=== PATIENT | female | born 1995 | race Caucasian/White ===

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

== ENCOUNTER 2017-11-23 22:00 | Emergency (ER) | payer BC ==
[2017-11-23 22:56] VITALS: BP 119/72
--- NOTE | 2017-11-23 22:56 | ED ---
Courtney Mayorga Emily, scribed for Boston Olsen MD on 11/23/17 at 2234 . Throat Pain/Nasal Congestion - HPI Summary HPI Summary: This patient is a 22 year old F presenting to [facility] accompanied by family with a chief complaint of nose pain status post colliding heads with a friend at 2100 tonight. The patient rates the pain 0/10 in severity. Symptoms aggravated by nothing. Symptoms alleviated by nothing. Patient reports nasal discharge. Patient denies bleeding from nose. - History of Current Complaint Chief Complaint: EDFacialInjury Time Seen by Provider: 11/23/17 22:23 Hx Obtained From: Patient Onset/Duration: Sudden Onset, Lasting Hours, Still Present Severity: Mild Associated Signs And Symptoms: Positive: Nasal Discharge - Allergies/Home Medications Allergies/Adverse Reactions: Allergies Allergy/AdvReac Type Severity Reaction Status Date / Time No Known Allergies Allergy Verified 07/03/16 07:25 Home Medications: Home Medications NK [No Home Medications Reported] 11/23/17 [History Confirmed 11/23/17] PMH/Surg Hx/FS Hx/Imm Hx Previously Healthy: Yes Respiratory History: Reports: Hx Asthma - EXCERSISE INDUCED Opthamlomology History: Denies: Hx Legally Blind EENT History: Denies: Hx Deafness Infectious Disease History: No Infectious Disease History: Denies: Traveled Outside the [place] in Last 30 Days - Family History Known Family History: Positive: Hypertension, Diabetes - Social History Occupation: Student Lives: With Family Alcohol Use: None Substance Use Type: Reports: None Hx Tobacco Use: No Smoking Status (MU): Never Smoked Tobacco Have You Smoked in the Last Year: No Review of Systems Positive: Nasal Discharge, Other - Negative bleeding from nose Positive: Other - Positive nose pain All Other Systems Reviewed And Are Negative: Yes Physical Exam - Summary Physical Exam Summary: VITAL SIGNS: Reviewed. GENERAL: ~Patient is a well-developed and nourished female who is lying comfortable in the stretcher. Patient is not in any acute respiratory distress. HEAD AND FACE: No signs of trauma. No ecchymosis, hematomas or skull depressions. Mild tenderness over the L side of the nose. No swelling. No bleeding EYES: PERRLA, EOMI x 2, No injected conjunctiva, no nystagmus. EARS: Hearing grossly intact. Ear canals and tympanic membranes are within normal limits. MOUTH: Oropharynx within normal limits. NECK: Supple, trachea is midline, no adenopathy, no JVD, no carotid bruit, no c- spine tenderness, neck with full ROM. CHEST: Symmetric, no tenderness at palpation LUNGS: Clear to auscultation bilaterally. No wheezing or crackles. CVS: Regular rate and rhythm, S1 and S2 present, no murmurs or gallops appreciated. ABDOMEN: Soft, non-tender. No signs of distention. No rebound no guarding, and no masses palpated. Bowel sounds are normal. EXTREMITIES: FROM in all major joints, no edema, no cyanosis or clubbing. NEURO: Alert and oriented x 3. No acute neurological deficits. Speech is normal and follows commands. SKIN: Dry and warm Triage Information Reviewed: Yes Vital Signs On Initial Exam: Initial Vitals Temp Pulse Resp BP Pulse Ox 98.7 F 88 16 124/78 100 11/23/17 22:07 11/23/17 22:07 11/23/17 22:07 11/23/17 22:07 11/23/17 22:07 Vital Signs Reviewed: Yes Diagnostics - Vital Signs Vital Signs Temp Pulse Resp BP Pulse Ox 11/23/17 22:07 98.7 F 88 16 124/78 100 - Laboratory Lab Statement: Any lab studies that have been ordered have been reviewed, and results considered in the medical decision making process. - Radiology Nasal Bones XR Radiology Interpretation Completed By: ED Physician - Nasal bones XR reveals, per ED physician, no fracture. EENT Course/Dx - Course Course Of Treatment: This patient is a 22 year old F presenting to [facility] accompanied by family with a chief complaint of nose pain status post colliding heads with a friend at 2100 tonight. Nasal bones XR reveals, per ED physician, no fracture. Pt will be discharged home, she is agreeable with this plan. - Diagnoses Provider Diagnoses: Contusion, nose Discharge - Sign-Out/Discharge Documenting (check all that apply): Discharge/Admit/Transfer - Discharge home - Discharge Plan Condition: Stable Disposition: HOME Patient Education Materials: Nasal Contusion (ED) Referrals: Serge Conn MD [Primary Care Provider] - If Needed Additional Instructions: USE ICE AND PAIN MEDICATIONS NECESSARY RETURN TO THE EMERGENCY DEPARTMENT FOR NEW OR WORSENING SYMPTOMS The documentation as recorded by the Courtney esposito Emily accurately reflects the service I personally performed and the decisions made by me, Boston Olsen MD.
--- NOTE | 2017-11-24 07:31 | RAD ---
INDICATION: Nasal bone trauma. TECHNIQUE: 3 views of the nasal bones were obtained including lateral and Lutz views. FINDINGS: There is soft tissue swelling present over the nose. No fracture is seen. There is moderate S-shaped deviation of the nasal septum which is convex toward the left along its superior portion and toward the right along its inferior portion. IMPRESSION: NO EVIDENCE OF FRACTURE.
== END 2017-11-23 22:55 | disposition home or self-care (01) ==
LOC: ED 22:00
DX: S00.33XA Contusion of nose, initial encounter (principal); W50.0XXA Accidental hit or strike by another person, initial encounter; Y92.9 Unspecified place or not applicable
CPT/HCPCS: 70160; 99282

== ENCOUNTER 2018-01-17 19:48 | Emergency (ER) | payer BC ==
[2018-01-17 19:57] VITALS: BP 108/64
[2018-01-17] MEDS ORDERED: BSS OPTH.SOL* BTL OPHTHALMIC ONE (20:15)
[2018-01-17] MEDS ORDERED: Fluorescein Sod TOPICAL 0.6* 0.6 MG TEST OPHTHALMIC ONE (20:15)
[2018-01-17] MEDS ORDERED: Tetracaine 0.5% OPTH.SOL 4 ML* 1 DROP BTL ONE (20:16)
--- NOTE | 2018-01-17 20:20 | UC ---
Eye Complaint HPI - HPI Summary HPI Summary: feels like she got a fb in her left eye while washing he deck - History of Current Complaint Chief Complaint: UCEye Stated Complaint: FB IN EYE Time Seen by Provider: 01/17/18 20:13 Hx Obtained From: Patient Hx Last Menstrual Period: now ?: No Onset/Duration: Sudden Onset Timing: Constant Pain Intensity: 3 Pain Scale Used: 0-10 Numeric Location of Injury: Conjunctiva Character: Foreign Body Sensation Aggravating Factor(s): Nothing Alleviating Factor(s): Nothing Associated Signs And Symptoms: Positive: Drainage (Clear) - left - Allergies/Home Medications Allergies/Adverse Reactions: Allergies Allergy/AdvReac Type Severity Reaction Status Date / Time No Known Allergies Allergy Verified 01/17/18 19:58 PMH/Surg Hx/FS Hx/Imm Hx Previously Healthy: Yes - Surgical History Surgical History: None - Family History Known Family History: Positive: Hypertension, Diabetes - Social History Occupation: Student Lives: With Family Alcohol Use: Occasionally Alcohol Amount: 1 glass of wine with Thanksgiving dinner Substance Use Type: None Smoking Status (MU): Never Smoked Tobacco Have You Smoked in the Last Year: No Household Exposure Type: Cigarettes, Cigars - Immunization History Most Recent Influenza Vaccination: unknown Review of Systems Constitutional: Negative Skin: Negative Eyes: Eye Redness - left ENT: Negative Respiratory: Negative Cardiovascular: Negative Gastrointestinal: Negative Genitourinary: Negative Motor: Negative Neurovascular: Negative Musculoskeletal: Negative Neurological: Negative Psychological: Negative Is Patient Immunocompromised?: No All Other Systems Reviewed And Are Negative: Yes Physical Exam Triage Information Reviewed: Yes Appearance: Well-Appearing, No Pain Distress, Well-Nourished Vital Signs: Initial Vital Signs Temp 98.5 F 01/17/18 19:54 Pulse 83 01/17/18 19:54 Resp 18 01/17/18 19:54 BP 108/64 01/17/18 19:54 Pulse Ox 100 01/17/18 19:54 Vital Signs Reviewed: Yes Eye Exam: Normal - right, Other - left Eyes: Positive: Conjunctiva Clear - right, Conjunctiva Inflamed - left, Discharge - left clear ENT Exam: Normal ENT: Positive: Normal ENT inspection, Hearing grossly normal, Pharynx normal, TMs normal. Negative: Nasal congestion, Nasal drainage, Trismus, Muffled voice , Hoarse voice, Dental tenderness Dental Exam: Normal Neck exam: Normal Neck: Positive: Supple, Nontender Respiratory Exam: Normal Respiratory: Positive: Chest non-tender, No respiratory distress, No accessory muscle use Cardiovascular Exam: Normal Cardiovascular: Positive: RRR, Pulses Normal, Brisk Capillary Refill Musculoskeletal Exam: Normal Musculoskeletal: Positive: Strength Intact, ROM Intact Neurological Exam: Normal Neurological: Positive: Alert, Muscle Tone Normal Psychological Exam: Normal Skin Exam: Normal Re-Evaluation - Re-Evaluation First Eval Change: Unchanged - lid inverted, eye stained no evidence of fb or scratch Eye Complaint Course/Dx - Course Course Of Treatment: polytrim opthalimic drops, ibuprofen/tylenol follow with Dr. John gross symptoms fail to resolve in 12-24 hours - Differential Dx/Diagnosis Provider Diagnoses: OS Irratation, conjuctivitis Discharge - Sign-Out/Discharge Documenting (check all that apply): Patient Departure - Discharge Plan Condition: Stable Disposition: HOME Patient Education Materials: Ibuprofen (By mouth), Eye Foreign Body (ED) Referrals: Serge Conn MD [Primary Care Provider] - Migel Lopez MD [Medical Doctor] - If Needed - Billing Disposition and Condition Condition: STABLE Disposition: Home
[2018-01-17] MEDS ORDERED: Polymyx/Trimethoprim OPTH* 10 ML BTL LEFT EYE ONE (20:36)
== END 2018-01-17 20:55 | disposition home or self-care (01) ==
LOC: UCEAST 19:48
DX: H57.8 Other specified disorders of eye and adnexa (principal); H10.32 Unspecified acute conjunctivitis, left eye; Z82.49 Family history of ischemic heart disease and other diseases of the circulatory system; Z83.3 Family history of diabetes mellitus
CPT/HCPCS: 99212; A9270-GY; G0463

== ENCOUNTER 2019-01-15 21:58 | Emergency (ER) | payer BC ==
[2019-01-15 22:57] LABS: ABS Basophils 0.1 10^3/ul (0-0.2); ABS Lymphocytes 1.7 10^3/ul (1.0-4.8); ABS Monocytes 0.4 10^3/ul (0-0.8); ABS Neutrophils 3.2 10^3/ul (1.5-7.7); Eosinophil % 0.2 %; Hematocrit 36 % (35-47); Hemoglobin 11.8 g/dL (12.0-16.0); Lymphocyte % 31.9 %; Mean Corpuscular HGB Conc 33 g/dL (31-36); Mean Corpuscular Hemoglobin 26 pg (27-31); Mean Corpuscular Volume 80 fL (80-97); Mean Platelet Volume 7.7 fL (7.4-10.4); Platelet Count 275 10^3/uL (150-450); Red Cell Distribution Width 17 % (10-15); White Blood Count 5.4 10^3/uL (3.5-10.8)
[2019-01-15] MEDS ORDERED: Lactated Ringers 1000 ML Bag* 1,000 ML IV SCH (23:00)
[2019-01-15 23:17] LABS: Albumin 4.8 g/dL (3.2-5.2); Albumin/Globulin Ratio 1.5 (1-3); BUN/Creatinine Ratio 14.7 (8-20); Calcium 9.8 mg/dL (8.6-10.3); EGFR African American 116.9 (>60); EGFR Non-African American 96.6 (>60); Globulin 3.1 g/dL (2-4); Potassium 3.2 mmol/L (3.5-5.0); Total Bilirubin 0.6 mg/dL (0.2-1.0); Total Protein 7.9 g/dL (6.4-8.9)
[2019-01-15 23:56] LABS: Urine Appearance Cloudy; Urine Bilirubin Negative (Negative); Urine Blood Negative (Negative); Urine Color Yellow; Urine Glucose Negative (Negative); Urine Ketones Trace (Negative); Urine Nitrite Negative (Negative); Urine Protein Negative (Negative); Urine Specific Gravity 1.006 (1.010-1.030); Urine Urobilinogen Negative (Negative)
[2019-01-16] MEDS ORDERED: Potassium Chlor TAB* 20 MEQ TAB.ER PO ONE (00:30)
--- NOTE | 2019-01-16 02:09 | ED ---
GI/ HPI - HPI Summary HPI Summary: Patient is a 24 y/o F who is A0 presenting to ED with complaints of abdominal pain, dizziness, and some SOB. She reports that she is unsure for how long she has been . was confirmed with home urine test. LNMP was November 13. She notes that she has not gotten an US yet. She notes abdominal pain radiates into her back. She denies vaginal bleeding and urinary Sx. On triage, pain is rated 5/10, nothing is noted to aggravate/alleviate Sx. Home medications and allergies are reviewed. - History of Current Complaint Chief Complaint: EDAbdPain Time Seen by Provider: 01/15/19 22:19 Stated Complaint: " WITH ABDOMINAL PAIN PER PT" Hx Obtained From: Patient Hx Last Menstrual Period: now Onset/Duration: Still Present Timing: Constant Severity: Moderate Current Severity: Moderate Pain Intensity: 5 Location of Pain: Diffuse Pain Radiates to: Back Associated Signs and Symptoms: Positive: Back Pain, Dizziness, Abdominal Pain, Other: - SOB. Negative: UTI Symptoms Additional Signs & Symptoms: Negative: Vaginal Bleeding Aggravating Factor(s): Nothing Alleviating Factor(s): Nothing - Allergy/Home Medications Allergies/Adverse Reactions: Allergies Allergy/AdvReac Type Severity Reaction Status Date / Time No Known Allergies Allergy Verified 01/15/19 22:05 Home Medications: Home Medications [id number]/Iron/Folic Acid/Dha [Prena1 Madhuri Softgel] 1 tab PO DAILY 01/15/19 [ History Confirmed 01/15/19] PMH/Surg Hx/FS Hx/Imm Hx Respiratory History: Reports: Hx Asthma - EXCERSISE INDUCED Sensory History: Denies: Hx Legally Blind, Hx Deafness Opthamlomology History: Denies: Hx Legally Blind Infectious Disease History: No Infectious Disease History: Denies: Traveled Outside the [place] in Last 30 Days - Family History Known Family History: Positive: Hypertension, Diabetes - Social History Alcohol Use: Occasionally Alcohol Amount: 1 glass of wine with Thanksgiving dinner Substance Use Type: Reports: None Hx Tobacco Use: No Smoking Status (MU): Never Smoked Tobacco Have You Smoked in the Last Year: No Review of Systems Positive: Shortness Of Breath Positive: Abdominal Pain Genitourinary: Other - negative - urinary Sx and vaginal bleeding Neurological: Other - positive - dizziness All Other Systems Reviewed And Are Negative: Yes Physical Exam - Summary Physical Exam Summary: VITAL SIGNS: Reviewed. GENERAL: Patient is a well-developed and nourished female who is lying comfortable in the stretcher. Patient is not in any acute respiratory distress. HEAD AND FACE: No signs of trauma. No ecchymosis, hematomas or skull depressions. No sinus tenderness. EYES: PERRLA, EOMI x 2, No injected conjunctiva, no nystagmus. EARS: Hearing grossly intact. Ear canals and tympanic membranes are within normal limits. MOUTH: Oropharynx within normal limits. NECK: Supple, trachea is midline, no adenopathy, no JVD, no carotid bruit, no c- spine tenderness, neck with full ROM CHEST: Symmetric, no tenderness at palpation LUNGS: Clear to auscultation bilaterally. No wheezing or crackles. CVS: Regular rate and rhythm, S1 and S2 present, no murmurs or gallops appreciated. ABDOMEN: Soft, non-tender. No signs of distention. No rebound no guarding, and no masses palpated. Bowel sounds are normal. EXTREMITIES: FROM in all major joints, no edema, no cyanosis or clubbing. NEURO: Alert and oriented x 3. No acute neurological deficits. Speech is normal and follows commands. SKIN: Dry and warm Triage Information Reviewed: Yes Vital Signs On Initial Exam: Initial Vitals Temp Pulse Resp BP Pulse Ox 99.6 F 92 16 134/88 100 01/15/19 22:00 01/15/19 22:00 01/15/19 22:00 01/15/19 22:00 01/15/19 22:00 Vital Signs Reviewed: Yes Diagnostics - Vital Signs Vital Signs Temp Pulse Resp BP Pulse Ox 01/16/19 01:00 110 100 01/16/19 00:51 104 129/81 100 01/16/19 00:49 109 125/76 100 01/15/19 23:21 101 133/74 100 01/15/19 23:01 107 95 01/15/19 22:51 109 136/96 100 01/15/19 22:21 106 136/83 100 01/15/19 22:20 91 100 01/15/19 22:00 99.6 F 92 16 134/88 100 - Laboratory Lab Results: Lab Results 07/20/19 07/20/19 07/20/19 Range/Units 22:43 22:44 23:48 WBC 5.4 (3.5-10.8) 10^3/uL RBC 4.50 (3.70-4.87) 10^6 /uL Hgb 11.8 L (12.0-16.0) g/dL Hct 36 (35-47) % MCV 80 (80-97) fL MCH 26 L (27-31) pg MCHC 33 (31-36) g/dL RDW 17 H (10-15) % Plt Count 275 (150-450) 10^3/uL MPV 7.7 (7.4-10.4) fL Neut % (Auto) 59.4 % Lymph % (Auto) 31.9 % [place] % (Auto) 7.5 % Eos % (Auto) 0.2 % Baso % (Auto) 1.0 % Absolute Neuts (auto) 3.2 (1.5-7.7) 10^3/ul Absolute Lymphs (auto) 1.7 (1.0-4.8) 10^3/ul Absolute Monos (auto) 0.4 (0-0.8) 10^3/ul Absolute Eos (auto) 0.0 (0-0.6) 10^3/ul Absolute Basos (auto) 0.1 (0-0.2) 10^3/ul Absolute Nucleated RBC 0.0 10^3/ul Nucleated RBC % 0.0 Sodium 135 (135-145) mmol/L Potassium 3.2 L (3.5-5.0) mmol/L Chloride 104 (101-111) mmol/L Carbon Dioxide 22 (22-32) mmol/L Anion Gap 9 (2-11) mmol/L BUN 11 (6-24) mg/dL Creatinine 0.75 (0.51-0.95) mg/dL Est GFR ( Amer) 116.9 (>60) Est GFR (Non-Af Amer) 96.6 (>60) BUN/Creatinine Ratio 14.7 (8-20) Glucose 114 H (70-100) mg/dL Calcium 9.8 (8.6-10.3) mg/dL Magnesium 2.0 (1.9-2.7) mg/dL Total Bilirubin 0.60 (0.2-1.0) mg/dL AST 25 (13-39) U/L ALT 26 (7-52) U/L Alkaline Phosphatase 48 (34-104) U/L Total Protein 7.9 (6.4-8.9) g/dL Albumin 4.8 (3.2-5.2) g/dL Globulin 3.1 (2-4) g/dL Albumin/Globulin Ratio 1.5 (1-3) Beta HCG, Quant 60995.00 mIU/mL Urine Color Yellow Urine Appearance Cloudy Urine pH 6.0 (5-9) Ur Specific [place] 1.006 L (1.010-1.030) Urine Protein Negative (Negative) Urine Ketones Trace A (Negative) Urine Blood Negative (Negative) Urine Nitrate Negative (Negative) Urine Bilirubin Negative (Negative) Urine Urobilinogen Negative (Negative) Ur Leukocyte Esterase Negative (Negative) Urine Glucose Negative (Negative) Result Diagrams: 01/15/19 22:44 01/15/19 22:43 Lab Statement: Any lab studies that have been ordered have been reviewed, and results considered in the medical decision making process. - Ultrasound TRANSVAGINAL US Ultrasound Interpretation Completed By: Radiologist Summary of Ultrasound Findings: IMPRESSION: 1. There is an intrauterine gestational sac with yolk sac but no visible . pole with mean gestational sac diameter 9 mm or 5 weeks 4 days gestational age. 2. There is likely hemorrhagic or corpus luteum cyst of the left ovary. measuring a maximum of 2.6 cm. 3. The vascular ultrasound technologist worksheet was not provided at the time of. interpretation and is a necessary component of accurate interpretation and. therefore interpretation is tentative pending review of the worksheet. THIS REPORT WAS REVIEWED BY DR. LOCKETT. Re-Evaluation - Re-Evaluation First Eval Re-Evaluation Time: 01:58 Comment: Results of labs and tests were discussed with the patient. Patient will be discharged to home and follow up with PCP and OBGYN within three days. She is advised to get an US in a week. Strict return precautions given. Patient agreeable with this plan. GIGU Course/Dx - Course Course Of Treatment: Patient is a 24 y/o F who is A0 presenting to ED with complaints of abdominal pain, dizziness, and some SOB. She reports that she is unsure for how long she has been . was confirmed with home urine test. LNMP was November 13. She notes that she has not gotten an US yet. She notes abdominal pain radiates into her back. She denies vaginal bleeding and urinary Sx. Physical exam is unremarkable. TRANSVAGINAL US IMPRESSION: 1. There is an intrauterine gestational sac with yolk sac but no visible . pole with mean gestational sac diameter 9 mm or 5 weeks 4 days gestational age. 2. There is likely hemorrhagic or corpus luteum cyst of the left ovary. measuring a maximum of 2.6 cm. 3. The vascular ultrasound technologist worksheet was not provided at the time of. interpretation and is a necessary component of accurate interpretation and. therefore interpretation is tentative pending review of the worksheet. Results of labs and tests were discussed with the patient. Patient will be discharged to home and follow up with PCP and OBGYN within three days. She is advised to get an US in a week. Strict return precautions given. Patient agreeable with this plan. - Diagnoses Provider Diagnoses: Abdominal pain Discharge - Sign-Out/Discharge Documenting (check all that apply): Patient Departure - discharge Patient Received Moderate/Deep Sedation with Procedure: No - Discharge Plan Condition: Stable Disposition: HOME Patient Education Materials: Abdominal Pain (ED) Referrals: Serge Conn MD [Primary Care Provider] - 3 Days Rebecca Kent MD [Medical Doctor] - 3 Days Additional Instructions: RETURN TO ED FOR ANY NEW OR WORSENING SYMPTOMS. FOLLOW UP WITH YOUR PRIMARY CARE PHYSICIAN AND OBGYN WITHIN THREE DAYS. GET A REPEAT ULTRASOUND IN A WEEK. - Attestation Statements Document Initiated by Scribe: Yes Documenting Scribe: MISAEL MORENO Provider For Whom Chito is Documenting (Include Credential): FATUMA LOCKETT MD Scribe Attestation: MISAEL Mayorga, scribed for FATUMA LOCKETT MD on 01/16/19 at 0251. Status of Scribe Document: Ready
[2019-01-16 02:10] VITALS: BP 95/57
== END 2019-01-16 02:17 | disposition home or self-care (01) ==
LOC: ED 21:58
DX: O34.81 Maternal care for other abnormalities of pelvic organs, first trimester (principal); N83.12 Corpus luteum cyst of left ovary; R10.84 Generalized abdominal pain; R42 Dizziness and giddiness; R06.02 Shortness of breath; Z3A.01 Less than 8 weeks gestation of pregnancy
CPT/HCPCS: 36415; 76817; 80053; 81003; 83735; 84702; 85025; 96360; 96361; 99284; A9270-GY

== ENCOUNTER 2019-04-03 07:29 | Emergency (ER) | payer BC ==
[2019-04-03 07:37] VITALS: BP 111/77
--- NOTE | 2019-04-03 08:19 | UC ---
Dental HPI - HPI Summary HPI Summary: 24-year-old female who is 17 weeks presents to urgent care with complaints of left upper dental pain. States yesterday she broke one of her teeth while eating and has been having sharp shooting pain since that time. Has been using topical Orajel with no relief in the pain. Does not have a dentist appointment at present. Denies fever, chills, facial swelling, trismus , or drainage. - History of Current Complaint Chief Complaint: UCDentalProblem Stated Complaint: DENTAL COMPLAINT Time Seen by Provider: 04/03/19 08:09 Hx Obtained From: Patient Hx Last Menstrual Period: now ?: Yes - 17 weeks Pain Intensity: 8 Dental: 1 - Fractured tooth without gingival erythema, induration, fluctuance, or drainage. - Allergies/Home Medications Allergies/Adverse Reactions: Allergies Allergy/AdvReac Type Severity Reaction Status Date / Time No Known Allergies Allergy Verified 04/03/19 07:37 PMH/Surg Hx/FS Hx/Imm Hx Previously Healthy: Yes - Denies significant PMH - Surgical History Surgical History: None - Family History Known Family History: Positive: Hypertension, Diabetes - Social History Occupation: Student Lives: Dormitory/Roommates Alcohol Use: None Alcohol Amount: 1 glass of wine with Thanksgiving dinner Substance Use Type: None Smoking Status (MU): Never Smoked Tobacco Have You Smoked in the Last Year: No Household Exposure Type: Cigarettes, Cigars - Immunization History Most Recent Influenza Vaccination: unknown Review of Systems All Other Systems Reviewed And Are Negative: Yes Constitutional: Negative: Fever, Chills ENT: Positive: Dental Pain. Negative: Sore Throat, Ear Ache, Nasal Discharge, Sinus Congestion, Sinus Pain/Tenderness Respiratory: Positive: Negative Cardiovascular: Positive: Negative Gastrointestinal: Positive: Negative Genitourinary: Positive: Negative Musculoskeletal: Positive: Negative Neurological: Positive: Negative Is Patient Immunocompromised?: No Physical Exam - Summary Physical Exam Summary: GENERAL APPEARANCE: Well developed, well nourished, alert and cooperative, and appears to be in no acute distress. HEAD: Atraumatic. Normocephalic. No facial swelling noted. MOUTH/THROAT: Pharynx normal. No tonsilar inflammation, swelling, exudate, or lesions. Uvula midline. Fractured left upper 1st bicuspid without gingival erythema, induration, fluctuance, or drainage noted. NECK: Neck supple, non-tender without lymphadenopathy. CARDIAC: Normal S1 and S2. No S3, S4 or murmurs. Rhythm is regular. There is no peripheral edema, cyanosis or pallor. Extremities are warm and well perfused. Capillary refill is less than 2 seconds. Peripheral pulses intact. LUNGS: Clear to auscultation without rales, rhonchi, wheezing or diminished breath sounds. ABDOMEN: Positive bowel sounds. Soft, nondistended, nontender. No guarding or rebound. No masses or hepatosplenomegally. MUSKULOSKELETAL: ROM intact to all extremities. No joint erythema or tenderness. Normal muscular development. Normal gait. SKIN: Skin normal color, texture and turgor with no lesions or eruptions. Triage Information Reviewed: Yes Vital Signs: Initial Vital Signs Temp 99.0 F 04/03/19 07:34 Pulse 96 04/03/19 07:34 Resp 18 04/03/19 07:34 BP 111/77 04/03/19 07:34 Pulse Ox 100 04/03/19 07:34 Vital Signs Reviewed: Yes Dental Complaint Course/Dx - Course Course Of Treatment: 24-year-old female who is 17 weeks presents to urgent care with complaints of left upper dental pain. States yesterday she broke one of her teeth while eating and has been having sharp shooting pain since that time. Has been using topical Orajel with no relief in the pain. Does not have a dentist appointment at present. Denies fever, chills, facial swelling, trismus , or drainage. Afebrile. Vital signs stable. Patient had a fractured left upper first bicuspid without facial swelling, gingival erythema, induration, fluctuance, or drainage. Remainder of exam was unremarkable. Will place her on amoxicillin 875 mg twice a day 10 days to treat for any underlying infection recommend ufun-dec-caxalnh acetaminophen as well as topical analgesic as needed for pain. She was encouraged to make a dentist appointment with the next available. Anticipatory guidance and warning symptoms were reviewed with the patient. Verbalizes understanding of this plan of care. - Differential Dx/Diagnosis Differential Diagnosis/Dx: Dental Abscess, Dental Caries, Fractured Tooth, Odontogenic Pain, Peridontic Disease Provider Diagnosis: Pain, dental Discharge ED - Sign-Out/Discharge Documenting (check all that apply): Patient Departure All imaging exams completed and their final reports reviewed: No Studies - Discharge Plan Condition: Stable Disposition: HOME Prescriptions: Amoxicillin PO (*) [Amoxicillin 875 MG (*)] 875 mg PO BID #20 tab Patient Education Materials: Toothache (ED) Referrals: Serge Conn MD [Primary Care Provider] - Additional Instructions: Start amoxicillin 875 mg twice a day for 10 days. Take with food to avoid upset stomach. Be sure to complete the entire course even if feeling better. Take acetaminophen (Tylenol) according to directions as needed for pain. You may also use a topical pain medication such as Orajel to provide some temporary relief. Be sure to rinse your mouth out with a warm salt water solution after every time you eat to remove any debris. Make an appointment with your dentist at next available appointment. Seek immediate medical attention in the emergency room if you develop fever greater than 100.5 F, you are unable to open of close your mouth, are unable to swallow, have difficulty breathing, or any worsening of symptoms. - Billing Disposition and Condition Condition: STABLE Disposition: Home
== END 2019-04-03 08:31 | disposition home or self-care (01) ==
LOC: UCEAST 07:29
DX: O99.612 Diseases of the digestive system complicating pregnancy, second trimester (principal); S02.5XXA Fracture of tooth (traumatic), initial encounter for closed fracture; K08.89 Other specified disorders of teeth and supporting structures; Z3A.17 17 weeks gestation of pregnancy; X58.XXXA Exposure to other specified factors, initial encounter; Y92.9 Unspecified place or not applicable
CPT/HCPCS: 99212; G0463

== ENCOUNTER 2019-09-09 17:48 | Inpatient (IN) | payer BC ==
[2019-09-09] MEDS ORDERED: Dinoprostone* 10 MG VAG.SUPP VAGINAL ONE (19:28)
--- NOTE | 2019-09-09 19:36 | PN ---
L&D Outpatient: Visit - Reproductive Information Estimated Due Date: 09/13/19 Gestational Age: 39 Weeks and 3 Days : 1 Para: 0 - Reason for Visit Visit Reason: 24 y/o at 39 + weeks EGA, with gestational diabetes diet controlled, admitted for cervical ripening prior to induction of labor - Antepartal Records Antepartal Record: Reviewed, Complicated by: - Gestational diabetes and FE++ deficiency anemia. - Patient History Patient History Significant: No Review of Systems Constitutional: Comfortable CV Complaint: No Respiratory: Shortness of Breath: No Gastrointestinal: No Nausea/Vomiting, Normal Bowel Movement Genitourinary: No Dysuria, No Bleeding, No Leaking Fluid Musculoskeletal: No Complaint, No Epigastric Pain Neurological: No Headache, No Visual Changes Movement: Normal L&D Outpatient: Exam Vitals - Most Recent: Temp 99.2 BP 124/74 P 96 RR 20 POx 100% RA - Cervical Exam Cervical Exam: 1cm/80%/posterior firm/high - Abdominal Exam Abdomen Exam: Non-Tender, Fundal Height Consistent with Dates - Membranes Membrane Status: Intact - Ultrasound/Biophysical Profile Ultrasound Status: Not Done Biophysical Profile: Normal Reactive NST EFM Findings - External Monitor Findings Baseline Heart Rate: 120 External Monitor Findings: Accelerations Present, No Pattern of Variable or Late Decelerations Contractions: None L&D Outpatient: Asses/Plan Assessment: Poor dumont score, at 39 weeks, GDMA1. Plan: Continue Observation - Cervical ripening with Cervidil tonight.
[2019-09-09] MEDS ORDERED: Morphine 10 MG/ML VIAL (1 ml) IM ONE (23:00)
[2019-09-09] MEDS ORDERED: Promethazine INJ(RESTRICTED)* 25 MG/ML 1 ML VIAL IM ONE (23:00)
[2019-09-10] MEDS ORDERED: Lactated Ringers 1000 ML Bag* 1,000 ML IV ONE ×2 (10:05→17:03)
[2019-09-10] MEDS ORDERED: Buffered Lidocaine 1% SYRIN* 1 ML/SYRINGE INTRADERM ONE (10:05)
--- NOTE | 2019-09-10 10:34 | HP ---
General Information - Reason for Visit at 39 weeks with gestational diabetes, admitted for induction of labor. - General Information Maternal Age: 24 Grav: 1 Para: 0 SAB: 0 IEA: 0 Estimated Due Date: 09/13/19 Determined By: Early Ultrasound Gestational Age in Weeks/Days: 39 4/7 Maternal Blood Type and Rh: A Positive - Results this Serology/RPR Result: Non-Reactive Rubella Result: Immune HBsAg Result: Negative HIV Result: Negative GBS Culture Result: Negative Past Medical History Delivery History: See Records - Primigravida Pertinent Past Medical History: See Records Past Medical History Comment: Iron deficiency anemia. Benign Heart murmur as a child. Pap smear 03/02/19 LGSIL-Plan repeat pap/hpv Pertinent Past Surgical History: See Records Past Surgical History Comment: None Pertinent Family History: See Records - Antepartal Records Antepartal Records: Reviewed, Complicated by: Review of Systems Constitutional: Uncomfortable CV Complaint: No Respiratory: Shortness of Breath: No Gastrointestinal: No Nausea/Vomiting, Normal Bowel Movement Genitourinary: No Dysuria, No Bleeding, No Leaking Fluid Musculoskeletal: Contractions - Q3 -4 min apart, patient describes them as mild and tolerable. Neurological: No Headache, No Visual Changes Movement: Normal Exam Allergies/Adverse Reactions: Allergies No Known Allergies Allergy (Verified 04/03/19 07:37) Vital Signs 09/10/19 04:21 Respiratory 21 Rate Tempn 98.1 BP 125/84 P 89 RR 16 POx 100% RA - Measurements Height: 5 ft 3 in Weight: 151 lb Weight in lbs: 151.388346 Body Mass Index (BMI): 26.7 Pre- Weight: 125 lb Weight Gained This : 26 lbs and 0 ozs - Exam Breast: Breast Exam Deferred CVA: No CVA Tenderness Extremities: No Edema Heart: Normal Rhythm/Heart Sounds HEENT: No Significant Findings Lungs: Clear Bilaterally Rectal: Rectal Exam Deferred Reflexes: DTR 2+ Thyroid: No Thyromegaly - Abdominal Exam Abdomen Exam: Fundal Height Consistent with Dates - Ultrasound/Biophysical Profile Ultrasound Status: Not Done Biophysical Profile: Normal Reactive NST Targeted Exam Findings See L&D Outpatient Visit Provider Note for Findings: N/A Cervical Exam: 3cm Effacement: 80% Station: 0 Presenting Part: Vertex Membrane Status: AROM - Clear fluid EFM Findings - External Monitor Findings Baseline Heart Rate: 125 External Monitor Findings: Accelerations Present, No Pattern of Variable or Late Decelerations Contractions: Regular, Mild, < 45 Seconds Assessment/Plan - Assessment Patient post cervical ripening with cervidil with regular contractions, AROM clear. - Obstetrical Risk Factors Obstetrical Risk Factors: Gestational Diabetes - Diet controlled - Plan Plan: IV Hydration, Admit - Anticipate Vaginal Delivery - Date/Time of Admission Date of Admission: 09/10/19 Time of Admission: 10:00
[2019-09-10 10:52] LABS: ABS Basophils 0.1 10^3/ul (0-0.2); ABS Lymphocytes 1.5 10^3/ul (1.0-4.8); ABS Monocytes 0.5 10^3/ul (0-0.8); ABS Neutrophils 6.9 10^3/ul (1.5-7.7); Eosinophil % 0.2 %; Hematocrit 35 % (35-47); Hemoglobin 11.2 g/dL (12.0-16.0); Lymphocyte % 16.2 %; Mean Corpuscular HGB Conc 33 g/dL (31-36); Mean Corpuscular Hemoglobin 24 pg (27-31); Mean Corpuscular Volume 75 fL (80-97); Mean Platelet Volume 7.9 fL (7.4-10.4); Nucleated Red Blood Cells % 0.1; Platelet Count 227 10^3/uL (150-450); Red Blood Count 4.58 10^6 /uL (3.70-4.87); Red Cell Distribution Width 24 % (10-15)
[2019-09-10] MEDS ORDERED: Lactated Ringers 1000 ML Bag* 1,000 ML IV SCH ×3 (11:00→21:00)
[2019-09-10 11:02] LABS: Urine Benzodiazepine Screen None Detected (None Detect); Urine Opiates Screen None Detected (None Detect)
[2019-09-10] MEDS ORDERED: Oxytocin in LR* 20 UNITS/1,000 ML BAG IVPB ONE (15:16)
[2019-09-10] MEDS ORDERED: OBEPIDURAL* 250 ML EPIDURAL ONE (15:35)
[2019-09-10] MEDS ORDERED: Oxytocin in LR* 20 UNITS/1,000 ML BAG IVPB SCH (16:00)
[2019-09-10] MEDS ORDERED: Phenylephrine 40 MCG/ML SYRINGE IV PUSH PRN ×2 (17:03)
[2019-09-10] MEDS ORDERED: OBEPIDURAL* 250 ML EPIDURAL SCH (18:00)
[2019-09-10] MEDS ORDERED: Acetaminophen TAB* 325 MG PO PRN (20:45)
[2019-09-10] MEDS ORDERED: Tetan/Diph/Pertus SYR(Tdap)* 0.5 ML SYR(BOOSTRIX) use SYR contains LATEX IM ONE (20:45)
[2019-09-10] MEDS ORDERED: Dibucaine 1% 28.35 GM TUBE PR PRN (20:45)
[2019-09-10] MEDS ORDERED: Glycerin ADULT SUPP PR PRN (20:45)
[2019-09-10] MEDS ORDERED: Witch Hazel PAD* JAR TOPICAL PRN (20:45)
--- NOTE | 2019-09-10 20:49 | PROCNOTE ---
[facility] [place] OB: Delivery Note - Delivery A Date of : 09/10/19 [place] Sex: Female [place] Weight at : 7 lb 15 oz Score 1 Minute: 9 Score 5 Minutes: 9 Gestational Age in Weeks and Days at Delivery: 39 Weeks and 4 Days Delivery Method: Spontaneous Vaginal Labor: Induced Did Patient attempt ?: N/A, No Previous Amniotic Fluid: Clear Estimated Blood Loss: 300 Anesthesia/Analgesia: CEI for Labor Delivered By: Bhupinder Zacarias - Nursery Level of Nursery: Regular/Bedside - Perineum Perineal Injury: Periurethral Laceration - 1st dgree, Perineal Laceration, 2nd Degree Perineal Repair: By Delivering Practioner - Events Delivery Events of Note: Pitocin During Labor
[2019-09-10] MEDS ORDERED: Simethicone TAB* 80 MG TAB.CHEW PO SCH (21:00)
[2019-09-11] MEDS ORDERED: Lidocaine 1% INJ* 10 MG/ML 30 ML SDV ONE (01:13)
[2019-09-11] MEDS: Ibuprofen TAB* 600 MG PO PRN ×3 (04:11→20:18)
[2019-09-11] MEDS: Docusate CAP* 100 MG PO SCH ×4 (04:15→20:18)
[2019-09-11 06:49] LABS: Hematocrit 27 % (35-47); Hemoglobin 8.8 g/dL (12.0-16.0); Mean Corpuscular HGB Conc 33 g/dL (31-36); Mean Corpuscular Hemoglobin 24 pg (27-31); Mean Corpuscular Volume 74 fL (80-97); Mean Platelet Volume 7.6 fL (7.4-10.4); Platelet Count 194 10^3/uL (150-450); Red Blood Count 3.65 10^6 /uL (3.70-4.87); Red Cell Distribution Width 24 % (10-15); White Blood Count 13.3 10^3/uL (3.5-10.8)
[2019-09-11 07:14] LABS: ABS Basophils 0.1 10^3/ul (0-0.2); ABS Lymphocytes 1.5 10^3/ul (1.0-4.8); ABS Monocytes 0.9 10^3/ul (0-0.8); ABS Neutrophils 10.8 10^3/ul (1.5-7.7); Eosinophil % 0.2 %; Lymphocyte % 11.2 %; Nucleated Red Blood Cells % 0.1
[2019-09-11] MEDS: Ferrous Gluconate TAB* 324 MG TAB PO SCH ×2 (08:30→20:19)
[2019-09-12] MEDS: Ibuprofen TAB* 600 MG PO PRN (05:19)
[2019-09-12] MEDS: Ferrous Gluconate TAB* 324 MG TAB PO SCH (08:29)
[2019-09-12] MEDS: Docusate CAP* 100 MG PO SCH (08:30)
[2019-09-12 08:42] VITALS: BP 108/77
== END 2019-09-12 11:41 | disposition home or self-care (01) | DRG 560 ==
LOC: MCHOBOUT 17:48 → MCHOB 09-10 10:03
PROVIDERS: ADMIT Obstetrics & Gynecology; ATTEND Obstetrics & Gynecology
PROC: 10E0XZZ Delivery of Products of Conception, External Approach (ICD-10-PCS; principal; 2019-09-10)
PROC: 3E033VJ Introduction of Other Hormone into Peripheral Vein, Percutaneous Approach (ICD-10-PCS; 2019-09-10)
PROC: 10907ZC Drainage of Amniotic Fluid, Therapeutic from Products of Conception, Via Natural or Artificial Opening (ICD-10-PCS; 2019-09-10)
PROC: 0KQM0ZZ Repair Perineum Muscle, Open Approach (ICD-10-PCS; 2019-09-10)
DX: O24.420 Gestational diabetes mellitus in childbirth, diet controlled (principal); Z37.0 Single live birth; O70.1 Second degree perineal laceration during delivery; O99.02 Anemia complicating childbirth; D64.89 Other specified anemias; Z3A.39 39 weeks gestation of pregnancy
CPT/HCPCS: 36415; 59200; 80307; 85025; 86850; 86900; 86901; A9270-GY; G0480; J2270; J2550